=== PATIENT | female | born 1965 | race Caucasian/White ===

== ENCOUNTER 2017-01-16 20:19 | Emergency (ER) | payer MEDICAID ==
[2017-01-16 20:35] VITALS: RESP 16
--- NOTE | 2017-01-16 20:45 | CPEKG ---
Heart Rate: 86 RR Interval: 698 P-R Interval: 128 QRSD Interval: 90 QT Interval: 360 QTC Interval: 431 P Ottertail: 79 QRS Ottertail: -43 T Wave Ottertail: 37 EKG Severity - ABNORMAL ECG - EKG Impression: SINUS RHYTHM EKG Impression: BIATRIAL ABNORMALITIES EKG Impression: LEFT AXIS DEVIATION EKG Impression: CONSIDER RIGHT VENTRICULAR HYPERTROPHY Electronically Signed By: Skyler Pruett 16-Jan-2017 23:13:13
--- NOTE | 2017-01-16 21:04 | EDPHY ---
H & P Stated Complaint: cough 3 weeks, chest pain x 2 days Time Seen by Provider: 01/16/17 20:54 HPI/ROS: CHIEF COMPLAINT: Chest pain, cough HISTORY OF PRESENT ILLNESS: The patient is a 51 y/o female complaining of chest pain and a cough. Her cough began 3 weeks ago, and was given Prednisone and Albuterol with no relief of her symptoms. She began to have sternal chest pain 2 days ago. It started as a sharp pain and has been intermittent since. She is also feeling short of breath. She had nausea, vomiting, diarrhea for the past 2 weeks. Today was her last day of taking 60mg PO Prednisone for her cough. She is unable to remember when she last had a bout of pancreatitis. Denies weakness, paresthesias, fever or other pertinent symptoms. REVIEW OF SYSTEMS: A comprehensive 10 point review of systems is otherwise negative aside from elements mentioned in the history of present illness. PMH: AL, asthma, COPD, pancreatitis, cholecystectomy SOCIAL HISTORY: Visiting family in [place],nonsmoker, marijuana user, denies alcohol PHYSICAL EXAM: Gen: Awake, Alert, No Distress HEENT: Nose: no rhinorrhea Eyes: PERRLA, EOMI Mouth: Moist mucosa Neck: Supple, no JVD Chest: nontender, wheezing Heart: S1, S2 normal, no murmur Abd: Soft, non-tender, no guarding Back: no CVA tenderness, no midline tenderness Ext: no edema, non-tender Skin: no rash Neuro: CN II-XII intact, Sensation grossly intact, Strength 5/5 in bilateral upper and lower extremities - Personal History LMP (Females 10-55): Post Menopausal Current Tetanus Diphtheria and Acellular Pertussis (TDAP): Yes - Medical/Surgical History Hx Asthma: Yes Hx Chronic Respiratory Disease: No Hx Diabetes: No Hx Cardiac Disease: No Hx Renal Disease: No Hx Cirrhosis: No Hx Alcoholism: No Hx HIV/AIDS: No Hx Splenectomy or Spleen Trauma: No Other PMH: copd, asthma, anxiety, ptsd - Social History Smoking Status: Never smoked Constitutional: Initial Vital Signs Temperature (C) 36.6 C 01/16/17 20:27 Heart Rate 92 01/16/17 20:27 Respiratory Rate 16 01/16/17 20:27 Blood Pressure 157/11 H 01/16/17 20:27 O2 Sat (%) 95 01/16/17 20:27 O2 Delivery Mode Room Air Allergies/Adverse Reactions: strawberry [[place]] Allergy (Severe, Verified 01/12/13 17:48) amitriptyline Allergy (Verified 01/12/13 10:32) aspirin Allergy (Verified 01/12/13 10:32) haloperidol [From Haldol] Allergy (Verified 01/12/13 10:33) haloperidol lactate [From Haldol] Allergy (Verified 01/12/13 10:33) ketorolac tromethamine [From Toradol] Allergy (Verified 01/12/13 10:33) NSAIDS (Non-Steroidal Anti-Inflamma Allergy (Verified 01/12/13 10:33) Penicillins Allergy (Verified 01/12/13 10:32) tramadol HCl [From Ultram] Allergy (Verified 01/12/13 10:33) venlafaxine HCl [From Effexor] Allergy (Verified 01/12/13 10:34) Home Medications: Medication Instructions Recorded ALPRAZolam [Xanax] 1 mg PO 01/12/13 Albuterol [Proventil Inhaler] 1 - 2 puffs IH Q4 01/12/13 Prednisone 01/16/17 Valium 01/16/17 Medical Decision Making - Diagnostics Imaging Results: Imaging Impressions Chest X-Ray 01/16/17 21:06 Impression: No definite pneumonia. Imaging: I viewed and interpreted images myself ED Course/Re-evaluation: The patient is a 51 y/o female presenting with chest pain for 2 days and nausea for several weeks. On exam she is wheezing. She asked for pain and anxiety medication, but she states she can't take NSAID's. Plan on chest x-ray, EKG, labs, and 4mg IV Zofran. The 12 lead EKG was interpreted by myself. See hard copy and/or "tracemaster" electronic copy for interpretation. Reassessed patient and discussed imaging and laboratory results. Patient's lungs have completely cleared after 1 nebulizer treatment. Oxygen saturations are 97% on room air. Chest x-ray is negative. Patient has some right-sided back tenderness likely secondary to her coughing. Her nausea is with Zofran. Will discharge with referral for outpatient follow-up at [facility], return for worsening. - Data Points Laboratory Results: Laboratory Results 10/06/17 22:20 01/16/17 22:20 01/16/17 01/16/17 22:20 22:20 WBC 12.02 10^3/uL H 10^3/uL (3.80-9.50) RBC 4.84 10^6/uL 10^6/uL (4.18-5.33) Hgb 15.7 g/dL g/dL (12.6-16.3) Hct 43.9 % % (38.0-47.0) MCV 90.7 fL fL (81.5-99.8) MCH 32.4 pg pg (27.9-34.1) MCHC 35.8 g/dL g/dL (32.4-36.7) RDW 12.5 % % (11.5-15.2) Plt Count 318 10^3/uL 10^3/uL (150-400) MPV 7.9 fL L fL (8.7-11.7) Neut % (Auto) 71.5 % % (39.3-74.2) Lymph % (Auto) 23.3 % % (15.0-45.0) [place] % (Auto) 4.4 % L % (4.5-13.0) Eos % (Auto) 0.0 % L % (0.6-7.6) Baso % (Auto) 0.2 % L % (0.3-1.7) Nucleat RBC Rel Count 0.0 % % (0.0-0.2) Absolute Neuts (auto) 8.59 10^3/uL H 10^3/uL (1.70-6.50) Absolute Lymphs (auto) 2.80 10^3/uL 10^3/uL (1.00-3.00) Absolute Monos (auto) 0.53 10^3/uL 10^3/uL (0.30-0.80) Absolute Eos (auto) 0.00 10^3/uL L 10^3/uL (0.03-0.40) Absolute Basos (auto) 0.03 10^3/uL 10^3/uL (0.02-0.10) Absolute Nucleated RBC 0.00 10^3/uL 10^3/uL (0-0.01) Immature Gran % 0.6 % % (0.0-1.1) Immature Gran # 0.07 10^3/uL 10^3/uL (0.00-0.10) Sodium 137 mEq/L mEq/L (134-144) Potassium 4.1 mEq/L mEq/L (3.5-5.2) Chloride 106 mEq/L mEq/L (97-110) Carbon Dioxide 18 mEq/l L mEq/l (22-31) Anion Gap 13 mEq/L mEq/L (8-16) BUN 10 mg/dL mg/dL (7-23) Creatinine 0.6 mg/dL mg/dL (0.6-1.0) Estimated GFR > 60 Glucose 88 mg/dL mg/dL (70-100) Calcium 9.2 mg/dL mg/dL (8.5-10.4) Troponin I TNP Departure - Departure Disposition: Home, Routine, Self-Care Clinical Impression: Asthma Condition: Good Instructions: Wheezing (ED), Asthma (ED), Back Pain (ED) Additional Instructions: May take acetaminophen 1000 mg every 6 hours as needed for pain. Continue using your albuterol inhaler as prescribed. Follow up with the [facility] in 2-3 days for further evaluation. Return to the emergency depart for increasing chest pain, worsening shortness of breath, fevers, chills, worsening cough, or any other concerns. Referrals: [facility],. [Clinic] - As per Instructions
[2017-01-16 22:25] LABS: % IMMATURE GRANULYOCYTES 0.6 % (0.0-1.1); ABSOLUTE IMMATURE GRANULOCYTES 0.07 10^3/uL (0.00-0.10); ADD DIFF? NO; ADD MORPH? NO; ADD SCAN? NO; ATYPICAL LYMPHOCYTE FLAG 10 (0-99); FRAGMENT RBC FLAG 0 (0-99); HEMATOCRIT 43.9 % (38.0-47.0); HEMOGLOBIN 15.7 g/dL (12.6-16.3); LEFT SHIFT FLG 0 (0-99); LIPEMIA HEMOLYSIS FLAG 90 (0-99); MEAN CELL HEMOGLOBIN 32.4 pg (27.9-34.1); MEAN CELL HEMOGLOBIN CONCENTR. 35.8 g/dL (32.4-36.7); MEAN CELL VOLUME 90.7 fL (81.5-99.8); MEAN PLATELET VOLUME 7.9 fL (8.7-11.7); PLATELET CLUMPS FLAG 0 (0-99); PLATELET COUNT 318 10^3/uL (150-400); RED BLOOD CELL COUNT 4.84 10^6/uL (4.18-5.33); RED CELL DISTRIBUTION WIDTH 12.5 % (11.5-15.2)
[2017-01-16 22:39] LABS: ANION GAP 13 mEq/L (8-16); CALCIUM 9.2 mg/dL (8.5-10.4); CARBON DIOXIDE 18 mEq/l (22-31); CHLORIDE 106 mEq/L (97-110); CREATININE 0.6 mg/dL (0.6-1.0); GLOMERULAR FILTRATION RATE > 60; GLUCOSE 88 mg/dL (70-100); POTASSIUM 4.1 mEq/L (3.5-5.2); SODIUM 137 mEq/L (134-144)
[2017-01-16] MEDS ORDERED: ONDANSETRON 4 MG/2 ML VIAL IVP ONE (23:11)
[2017-01-16] MEDS ORDERED: ONDANSETRON 4MG PREPACK#2 BTL TAKEHOME ONE (23:11)
[2017-01-16 23:12] VITALS: O2SAT 97
[2017-01-16 23:57] LABS: TROPONIN I < 0.012 ng/mL (0.000-0.034)
[2017-01-17 00:03] VITALS: BP 130/65; PULSE 70; TEMP 98.1
== END 2017-01-17 00:01 | disposition home or self-care (01) ==
DX: J45.909 Unspecified asthma, uncomplicated (principal); I25.2 Old myocardial infarction
CPT/HCPCS: 96374; J2405